=== PATIENT | male | born 1950 | race Two or more races ===

== ENCOUNTER 2019-09-06 11:16 | Emergency (ER) | payer OTHER ==
[~2019-09-06] VITALS: Ht 170.2 cm; Wt 77.1 kg
[2019-09-06 11:26] VITALS: BP 166/88
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
[2019-09-06] MEDS ORDERED: Methocarbamol 750mg tab ORAL ONE (11:45)
[2019-09-06] MEDS ORDERED: IBUPROFEN600 MG ORAL (12:56)
[2019-09-06] MEDS ORDERED: LIDODERM700 M1 TOPIC (12:56)
[2019-09-06] MEDS ORDERED: ROBAXIN-750750 MG PO (12:56)
[2019-09-06 13:13] VITALS: BP 156/88
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
--- NOTE | 2019-09-06 16:59 | Diagnostic Imaging Report ---
Indication: Chest pain Technique: 2 views of the chest Comparison: None Findings: Lungs and pleural spaces are clear. The heart size is normal. The bones are unremarkable. There is slight scalloping of the left hemidiaphragm. The aorta is tortuous. Impression: No acute process
== END 2019-09-06 13:15 | disposition home or self-care (01) ==
LOC: EDBD 11:16 → EMR 12:06
DX: S20.211A Contusion of right front wall of thorax, initial encounter (principal); S40.011A Contusion of right shoulder, initial encounter; T14.8XXA Other injury of unspecified body region, initial encounter; E11.9 Type 2 diabetes mellitus without complications; V43.52XA Car driver injured in collision with other type car in traffic accident, initial encounter; Y92.411 Interstate highway as the place of occurrence of the external cause
CPT/HCPCS: 71046; 93005; 99284